=== PATIENT | female | born 1960 | race Caucasian/White ===

== ENCOUNTER 2020-10-07 11:40 | Day surgery (SDC) | payer OTHER ==
[2020-10-05 12:49] LABS: COVID AG,FIA SOURCE NASOPHARYNGEAL
[2020-10-05 12:53] LABS: BASOPHILS % (AUTO) 0.4 % (0.0-2.0); EOSINOPHILS % (AUTO) 1.7 % (1.0-6.0); HEMATOCRIT 37.5 % (36-46); HEMOGLOBIN 12.9 g/dL (12.0-16.0); LYMPHOCYTES # (AUTO) 1.5 K/uL (1.0-4.8); LYMPHOCYTES % (AUTO) 24.3 % (22.0-44.0); MEAN CORPUSCULAR HEMOGLOBIN 32.3 pg (26.0-34.0); MEAN CORPUSCULAR HGB CONC 34.3 G/dL (31.0-37.0); MEAN CORPUSCULAR VOLUME 94 fL (80-100); MONOCYTES # (AUTO) 0.5 K/uL (0.1-1.0); MONOCYTES % (AUTO) 8.1 % (2.0-9.0); NEUTROPHILS # (AUTO) 4.2 K/uL (1.8-7.7); NEUTROPHILS % (AUTO) 65.5 % (40.0-70.0); PLATELET COUNT (AUTO) 210 K/uL (150-450); RED BLOOD CELL COUNT(AUTO) 3.98 MIL/uL (4.00-5.20); RED CELL DISTRIBUTION WIDTH 13.2 % (11.5-14.5)
[2020-10-05 13:00] LABS: ANION GAP 7 mmol/L (8-16); CALCIUM, TOTAL 9.4 mg/dL (8.8-10.5); CARBON DIOXIDE 33 mmol/L (22-29); CHLORIDE 104 mmol/L (98-107); CREATININE 0.66 mg/dL (0.60-1.30); GLOMERULAR FILTR. RATE CALC > 60 mL/min (>60); GLUCOSE,RANDOM 83 mg/dL (70-110); POTASSIUM 3.5 mmol/L (3.5-5.1); SODIUM SERUM 144 mmol/L (136-145); UREA NITROGEN, BLOOD 14 mg/dL (7-18)
[~2020-10-07] VITALS: Ht 160 cm; Wt 85.0 kg
[~2020-10-07 11:40] MED LIST: CeFAZolin 2 GM/DEXTROSE 50 ML IV ONE; FLUORESCEIN SODIUM 1 MG STRIP ONE; RINGERS SOLUTION,LACTATED 1,000 ML IV ONE
[2020-10-07] MEDS ORDERED: ONDANSETRON HCL 4 MG/2 ML VIAL IVP ONE (11:41)
[2020-10-07] MEDS ORDERED: EPHEDrine SULFATE 50 MG/ML VIAL IM ONE (11:41)
[2020-10-07] MEDS ORDERED: PROPOFOL 1% 20 ML VIAL IVP ONE (11:41)
[2020-10-07] MEDS ORDERED: LIDOCAINE/PF 2% 5 ML VIAL IM ONE (11:41)
[2020-10-07] MEDS ORDERED: DEXAMETHASONE SOD PHOS 4 MG/ML VIAL IVP ONE (11:41)
[2020-10-07] MEDS ORDERED: CHOL100044 PO (11:42)
[2020-10-07] MEDS ORDERED: LOSA50TA37 PO (11:42)
[2020-10-07] MEDS ORDERED: SIMV-260 PO (11:42)
[2020-10-07] MEDS ORDERED: HYDR25TA2 PO (11:42)
[2020-10-07] MEDS ORDERED: LEVO100 PO (11:42)
[2020-10-07] MEDS ORDERED: RINGERS SOLUTION,LACTATED 1,000 ML IV ONE (12:00)
[2020-10-07] MEDS ORDERED: LIDOCAINE 2%/EPI 1:200,000/PF 20 ML VIAL ONE (12:24)
[2020-10-07] MEDS ORDERED: BUPIVACAINE HCL/PF 0.5% 30 ML VIAL ONE (12:24)
[2020-10-07] MEDS ORDERED: CeFAZolin 2 GM/DEXTROSE 50 ML IV ONE (13:00)
[2020-10-07] MEDS ORDERED: ACETAMINOPHEN 500 MG TABLET PO PRN (14:45)
[2020-10-07] MEDS ORDERED: IBUPROFEN 800 MG TABLET PO PRN (14:45)
== END 2020-10-07 15:50 | disposition home or self-care (01) ==
LOC: SURGERY 11:40
PROVIDERS: ATTEND Surgery
DX: N63.20 Unspecified lump in the left breast, unspecified quadrant (principal); E66.3 Overweight; Z79.899 Other long term (current) drug therapy; E78.00 Pure hypercholesterolemia, unspecified; I10 Essential (primary) hypertension; E78.5 Hyperlipidemia, unspecified; E03.9 Hypothyroidism, unspecified
CPT/HCPCS: 19120; 36415; 80048; 85025; 87426; 88304; C9803; J0690; J1100; J2405; J2704; J3490 ×3; J7120